=== PATIENT | male | born 1955 | race Caucasian/White ===

== ENCOUNTER 2018-07-24 13:24 | Emergency (ER) | payer OTHER ==
--- NOTE | 2018-07-25 08:31 | NUR ---
Attempted to call patient to return to ER. There is not a phone number listed for this patient.
== END 2018-07-24 14:46 | disposition left against medical advice (07) ==
LOC: ER 13:25
DX: R42 Dizziness and giddiness (principal); Z53.21 Procedure and treatment not carried out due to patient leaving prior to being seen by health care provider
CPT/HCPCS: 93005

== ENCOUNTER 2018-10-30 09:22 | Outpatient (CLI) | payer MEDICARE ==
[2018-10-30] VITALS (18 sets, daily range): BP systolic 108–145; BP diastolic 68–86
== END 2018-10-30 23:59 | disposition home or self-care (01) ==
LOC: CARD DIAG 09:22
PROVIDERS: ATTEND Physician Assistant
DX: R55 Syncope and collapse (principal); R42 Dizziness and giddiness; F17.200 Nicotine dependence, unspecified, uncomplicated
CPT/HCPCS: 93660

== ENCOUNTER 2022-11-21 11:56 | Emergency (ER) | payer MEDICARE ==
[~2022-11-21] VITALS: Ht 180.3 cm; Wt 68.0 kg
[2022-11-21 12:24] LABS: BASOPHILS % (AUTO) 0.1 % (0-1); EOSINOPHILS % (AUTO) 0.2 % (0-6); HEMATOCRIT 48.5 % (42.0-52.0); HEMOGLOBIN 16.2 g/dl (14.0-17.9); LYMPHOCYTES # (AUTO) 1.5 X10'3 (1.1-4.8); LYMPHOCYTES % (AUTO) 9.4 % (21-51); MEAN CORPUSCULAR HGB CONC 33.3 g/dL (33.0-36.5); MONOCYTES # (AUTO) 0.8 X10'3 (0-0.9); MONOCYTES % (AUTO) 5.2 % (2-12); NEUTROPHILS # (AUTO) 13.2 X10'3 (1.8-7.7); NEUTROPHILS % (AUTO) 85.1 % (42-75); PLATELET COUNT 235 X10'3 (140-440); RED BLOOD COUNT 5.39 X10'6 (4.70-6.10); RED CELL DISTRIBUTION WIDTH 14.2 % (11.5-14.5); WHITE BLOOD COUNT 15.5 X10'3 (4.5-11.0)
[2022-11-21 12:33] LABS: ALANINE AMINOTRANSFERASE 18 U/L (12-78); ALBUMIN/GLOBULIN RATIO 1.3 (1.1-1.5); ALKALINE PHOSPHATASE 108 IU/L (46-116); ANION GAP 11 (8-16); ASPARTATE AMINO TRANSFERASE 9 U/L (10-37); BILIRUBIN,TOTAL 0.6 MG/DL (0.1-1.0); BLOOD UREA NITROGEN 27 MG/DL (7-18); CALCIUM 9.6 MG/DL (8.5-10.1); CHLORIDE 103 MMOL/L (99-107); CREATININE 1.35 MG/DL (0.60-1.10); GLUCOSE 171 MG/DL (70-104); POTASSIUM 3.9 MMOL/L (3.5-5.1); SODIUM 141 MMOL/L (135-145); TOTAL CARBON DIOXIDE 26.6 MMOL/L (24-32); eGFR 52 ML/MIN
[2022-11-21] MEDS ORDERED: normal saline 1000ML IV soln IVB ONE (14:10)
[2022-11-21] MEDS ORDERED: HYDROcodone/acetaminophen 5mg/325mg tablet PO ONE (14:10)
[2022-11-21] MEDS ORDERED: iohexol 350MG/ML 100ml bottle IV ONE (14:17)
[2022-11-21] MEDS ORDERED: ondansetron/PF 4mg/2ml inj IV ONE (15:45)
[2022-11-21] MEDS ORDERED: methylPREDNISolone sod succ 125mg/2ml vial IV ONE (17:25)
[2022-11-21 17:56] VITALS: BP 150/82
== END 2022-11-21 18:00 | disposition home or self-care (01) ==
LOC: ER 11:57
DX: R07.9 Chest pain, unspecified (principal); Z95.0 Presence of cardiac pacemaker; I11.0 Hypertensive heart disease with heart failure; J44.9 Chronic obstructive pulmonary disease, unspecified; Z90.49 Acquired absence of other specified parts of digestive tract; Z88.6 Allergy status to analgesic agent; Z79.899 Other long term (current) drug therapy
CPT/HCPCS: 36415; 71045; 71275; 74174; 80053; 83880; 84484; 85025; 93005; 96361; 96374; 96375; 99285; J2405; J2930; J3490; J7030; Q9967

== ENCOUNTER 2024-12-27 09:15 | Emergency (ER) | payer MEDICARE ==
[~2024-12-27] VITALS: Ht 180.3 cm; Wt 66.2 kg
[~2024-12-27 09:15] MED LIST: ACET-1 PO; ATOR10TA PO; CLOP-32 PO; CYCL-920 PO; LOP25T PO; NITR0.4T48 SL; PANT40TA54 PO
--- NOTE | 2024-12-27 09:33 | ELECTROCARDIOGRAPH REPORT ---
[facility] Test Date: 2024-12-27 Test Time: 09:31:10 Pat Name: LANDON NICOLE Department: [facility] Patient ID: 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 Reading MD: Dr. Elias Rice Measurements Intervals Kevin Rate: 85 P: 95 AK: 180 QRS: 175 QRSD: 104 T: 75 QT: 394 QTc: 469 Interpretive Statements Sinus rhythm Probable right ventricular hypertrophy Inferior infarct, acute (RCA) Probable RV involvement, suggest recording right precordial leads Baseline wander in lead(s) II,III,aVR,aVL,aVF,V3,V5,V6 Electronically Signed On 12-27-2024 10:27:[address] Elias Rice Please click the below link to view image of tracing.
[2024-12-27 09:52] LABS: MEAN PLATELET VOLUME 7.0 FL (7.4-10.4); RED CELL DISTRIBUTION WIDTH 14.3 % (11.5-14.5)
[2024-12-27 09:58] LABS: CREATININE 1.08 MG/DL (0.60-1.10); TOTAL CARBON DIOXIDE 27.4 MMOL/L (24-32); eCRCL 59 ML/MIN; eGFR 67 ML/MIN
[2024-12-27 10:31] VITALS: TEMP 97.7
[2024-12-27 11:22] LABS: LEUKOCYTE ESTERASE ,URINE MODERATE (Neg); NITRITES, URINE NEGATIVE (Neg); OCCULT BLOOD,URINE LARGE (Neg)
[2024-12-27 11:28] LABS: UA COLLECTION TYPE CLN CATCH MIDSTREAM
[2024-12-27 11:29] LABS: MUCUS STRANDS NONE SEEN /LPF (Neg); SQUAMOUS EPITHELIAL CELL,UR FEW /LPF (FEW)
--- NOTE | 2024-12-27 11:35 | Physician Documentation ---
History of Present Illness ~ General Chief Complaint: Blood in Urine Stated Complaint: EYE PRESSURE, BLOOD IN URINE Time Seen by MD: 11:07 OK to notify your PCP?: Yes Primary Medical Doctor: MARTHA FERNANDES [facility] Source: patient, RN/MD, RN notes reviewed, old records Mode of Arrival: POV, Wheelchair Exam Limitations: no limitations History of Present Illness Initial Comments This pleasant patient just had open heart surgery and seems to be healing excessively well. He was taken to the operating room on 12/04/2024 and had a two-vessel CABG. He has a history of paroxysmal AFib coronary artery disease hypertension status post CABG x2 vessel and was discharged home. The patient is on Plavix. No other anticoagulant was listed. Patient has been doing relatively well he has has had some pain to the back of the right side of his head temporal. He denies any photophobia no meningeal signs able to move his head without difficulty. He also is having some right eye pain that is started today where it is slightly red in the medial aspect it seems tender but also of concern started having some hematuria today as well. Patient denies any fevers or chills no dysuria frequency no chest pain no shortness of breath. He is here for evaluation and care. Medication Reconciliation Allergies: Coded Allergies: NSAIDS (Non-Steroidal Anti-Inflamma (Verified Allergy, Unknown, 12/27/24) aspirin (Verified Adverse Reaction, Severe, 12/27/24) Vomiting Scheduled Atorvastatin Calcium (Lipitor), 10 MG PO HS Ciprofloxacin HCl (Cipro), 1 TAB PO DAILY Clopidogrel Bisulfate (Plavix), 1 TAB PO DAILY, (Reported) Metoprolol Tartrate* (Lopressor tablet*), 25 MG PO Q12H Pantoprazole Sodium (Pantoprazole Sodium), 40 MG PO DAILY Scheduled PRN Acetaminophen with Codeine (Acetaminophen-Cod #3 Tablet), 1 TAB PO Q6H PRN for pain Cyclobenzaprine HCl (Cyclobenzaprine HCl), 1 TAB PO DAILY PRN for pain, (Reported) Nitroglycerin (Nitroglycerin), 0.4 MG SL Q5MIN PRN for Chest pain Q5min PRNx3- call MD, (Reported) Past Medical History Past Medical History: Arrhythmia, Coronary Artery Disease, Syncope, COPD Past Surgical History: angioplasty, pacemaker Alcohol Use: Rarely Drug Use: none Lives with: Spouse Lives In: Home Review of Systems All Other Systems at this time: Reviewed and Negative Physical Exam Physical Exam Vital Signs: RN Vital Signs have been reviewed: Yes, Temperature: 97.7, Source: Temporal, Heart Rate: 86, Respiratory Rate: 12, BP: 126/81, Pulse Oximetry: 100, Weight: 66.200 Oxygen Flow Rate: 0 Physical Exam General: The patient is well developed, well nourished, nontoxic appearing and is in mild acute distress. Skin: [place], warm and dry with no rashes. HEENT: Head was normocephalic and atraumatic. Eyes - pupils equal, round, reactive to light and accommodation. Left eye there is a medial globe of the right eye there is a Ric[place] of blue. Some slight congestion of and dilation of ocular external scleral vessels on the medial aspect. Optic discs well visualized no blood or abnormalities. Globes are soft to palpation. Extraocular movements were intact. Conjunctivae were nonicteric. The mouth and oropharynx were clear with moist mucous membranes. There were no pharyngeal exudates or erythema. Neck: Supple and nontender. There was no jugular venous distention, lymphadenopathy, thyromegaly or masses. No midline or paraspinal tenderness no meningeal symptoms. Full range of motion Chest: Clear to auscultation bilaterally without wheezes, rales or rhonchi. No accessory muscle use. No dullness to percussion. Heart: Rate regular and rhythmic. S1, S2. No murmurs. Palpation of the chest wall was normal. No rubs or thrills. Abdomen: Soft, nontender and nondistended. Positive bowel sounds. No guarding or rebound. No hepatosplenomegaly or palpable masses. Extremities: No cyanosis, clubbing or edema. The patient moves all extremities. Pulses were equal and symmetric. Neurologic: Motor sensory grossly intact Psychologic: The patient was oriented to person, place and time. The patient demonstrated appropriate judgement and insight. Progress Results/Orders Reviewed/noted all lab results: Yes Results/Orders Orders - VOLODYMYR GUZMAN MD Straight Cath For Urine Sample (12/27/24 09:23) Electrocardiogram (12/27/24 09:25) Cult Urine + [place] Ct (12/27/24 11:29) Ct Orbits (12/27/24 11:50) Ct Head (12/27/24 ) General Nursing Order (12/27/24 ) Completed Orders - VOLODYMYR GUZMAN MD Cbc/Diff (12/27/24 09:23) BMP (12/27/24 09:23) Electrocardiogram (12/27/24 09:25) Ua W/Microscopic, Cult If Ind (12/27/24 11:10) Ct Orbits (12/27/24 11:50) Ct Head (12/27/24 ) Proparacaine Ophth Solution (Alcaine Oph (12/27/24 11:55) Medications Received in ER Medications (Trade) Dose Ordered Sig/Mike Route PRN Reason Start Time Stop Time Status Last Admin Dose Admin (Alcaine ophth solution) 2 drop ONCE ONCE RIGHTEYE 12/27/24 11:55 12/27/24 11:56 DC 12/27/24 12:27 2 DROP Vital Signs 12/27/24 12/27/24 12/27/24 09:19 09:31 10:31 Temp 97.7 97.7 Pulse 93 86 Resp 20 18 12 B/P (MAP) 120/77 126/81 (96) Pulse Ox 98 100 O2 Flow Rate 0 0 Laboratory Tests Test 12/27/24 09:41 12/27/24 11:10 White Blood Count 16.0 H Red Blood Count 4.38 L Hemoglobin 13.3 L Hematocrit 38.8 L Mean Corpuscular Volume 88.5 Mean Corpuscular Hemoglobin 30.2 Mean Corpuscular Hemoglobin Concent 34.2 Red Cell Distribution Width 14.3 Platelet Count 352 Mean Platelet Volume 7.0 L Neutrophils (%) (Auto) 80.7 H Lymphocytes (%) (Auto) 11.3 L Monocytes (%) (Auto) 7.2 Eosinophils (%) (Auto) 0.4 Basophils (%) (Auto) 0.4 Neutrophils # (Auto) 12.9 H Lymphocytes # (Auto) 1.8 Monocytes # (Auto) 1.2 H Eosinophils # (Auto) 0.1 Basophils # (Auto) 0.1 CBC Comment Sodium Level 136 Potassium Level 4.3 Chloride Level 100 Carbon Dioxide Level 27.4 Anion Gap 9 Blood Urea Nitrogen 19 H Creatinine 1.08 Estimated GFR/1.73 m2 67 BUN/Creatinine Ratio 17.6 Glucose Level 139 H Calcium Level 9.3 Albumin 3.7 Chemistry Comments Urine Specimen Description Cln catch midstream Urine Color Yellow Urine Clarity Slightly cloudy Urine pH 6.5 Urine Specific [place] 1.010 Urine Protein Trace Urine Glucose (UA) Negative Urine Ketones Negative Urine Occult Blood Large H Urine Nitrite Negative Urine Bilirubin Negative Urine Urobilinogen 0.2 Urine Leukocyte Esterase Moderate H Urine RBC 0-2 Urine WBC 50-100 H Urine Squamous Epithelial Cells Few Urine Bacteria 1+ Urine Mucus None seen Urine Culture Indicated Indicated Volume Urine Centrifuged 10 ml Urine Comment Microbiology Date/Time Source Procedure Growth Status 12/27/24 11:29 Urine Clean Catch Midstream Urine Culture - Preliminary Culture received. Resulted Re-Evaluation Re-Evaluation : Re-Evaluation: Improved Progress Patient was given ice who as I. CT scan of the head and I did not show any acute bleeds. Hematuria showed more of WBCs more consistent with a urinary tract infection. Laboratory work shows a WBC of 16.0 and 80% neutrophils consistent with possible infectious etiology. There was some chronic anemia with a hemoglobin of 13 and 38 which is much greater than his baseline which is reassuring. Chemistries also within normal limits. Urinalysis however shows occult blood large but there are moderate leukocyte esterase 0-2 RBCs and 50-100 WBCs with 1+ bacteria few squamous epithelial cells consistent with a UTI. Patient then received fosfomycin and prescribed Cipro for a few days. Patient has follow up with both his riveter on Saturday and Cardiothoracic surgeon on Saturday. I spoke to his Cardiothoracic surgeon who agreed holding Plavix until symptoms improve would be prudent. As far as his eyes they were palpated they did not feel like there is any glaucoma or abnormal ocular pressures but was unable to use a Elder-Pen on the patient. Patient did receive some Alcaine eyedrops in his headache and pain immediately resolved but returned when the sensation back to his eye returned. Ice seemed to be helping. Continuous telemetry monitor interpretation shows normal sinus rhythm heart rate 90s, no ectopy, normal, my interpretation. Pulse oximetry monitor interpretation shows normal oxygenation 99% room air, normal, my interpretation. 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 Volodymyr Guzman Measurements Intervals [place] Rate: 85 P: 95 NV: 180 QRS: 175 QRSD: 104 T: 75 QT: 394 QTc: 469 Interpretive Statements Sinus rhythm Probable right ventricular hypertrophy Inferior infarct, acute (RCA) Probable RV involvement, suggest recording right precordial leads Baseline wander in lead(s) II,III,aVR,aVL,aVF,V3,V5,V6 Electronically Signed On 12-27-2024 10:27:[address] Volodymyr Guzman Please click the below link to view image of tracing. CT #1: Interpreted By: both CT: head With Contrast?: No Impression EXAM: CT CT HEAD INDICATION: eye right medial hematoma TECHNIQUE: CT of the head without intravenous contrast. Radiation Dose : 1. Head: CT Dose: CTDI volume is 52 mGy. Dose-length product is 957 mGy*cm The dose indicators for CT are the volume Computed Tomography (CT) Dose Index (CTDIvol) and the Dose Length Product (DLP), and are measured in units of mGy and mGy-cm, respectively. These indicators are not patient dose, but values generated from the CT scanner acquisition factors. The report includes radiation exposure data for exposures received during this examination. COMPARISON: None FINDINGS: There is no evidence of acute intracranial hemorrhage, extra-axial collection, mass effect, midline shift, herniation or hydrocephalus. The ventricles, sulci and cisterns are age appropriate. The winkler-white differentiation is intact. Patchy periventricular and subcortical white matter hypoattenuation is nonspecific but may be related to small vessel ischemic disease. The visualized paranasal sinuses and mastoid air cells are clear. The surrounding soft tissues and osseous structures are unremarkable. IMPRESSION: 1. No acute intracranial abnormality. Radiation optimization: All CT scans at this facility use at least one of these dose optimization techniques: automated exposure control mA and/or kV adjustment per patient size (includes targeted exams where dose is matched to clinical indication) or iterative reconstruction. #2: Interpreted By: radiologist With Contrast?: Yes Impression CT CT ORBITS Indication: eye right medial hematoma EXAM DATE: 12/27/2024 11:58 AM COMPARISON: CT CT HEAD on DOS: 12/27/24 TECHNIQUE: CT of the head without intravenous contrast. RADIATION DOSE: CTDIvol: 49 mGy, DLP: 546 mGy*cm FINDINGS: The paranasal sinuses and mastoids are well pneumatized. No orbital fracture. No retrobulbar hematoma. The extraocular muscles are unremarkable. No orbital mass seen. Mild right facial region contusion. 8 mm calcified lesion along the left orbital roof. IMPRESSION: No orbital wall fracture. No retrobulbar hematoma. Mild right facial region contusion. 8 mm calcified lesion along the orbital roof could represent osteoma, meningioma. MRI brain with and without contrast can be obtained for further characterization. Medical Decision Making Additional info obtained from: old records Departure Disposition: HOME / SELF CARE / HOMELESS Impression: Primary Impression: UTI (urinary tract infection) Qualified Codes: N30.01 - Acute cystitis with hematuria Additional Impressions: Scleral hematoma Cephalgia Qualified Codes: G44.209 - Tension-type headache, unspecified, not intractable Condition: Stable Referrals: NO PRIMARY CARE PROVIDER (PCP) Prescriptions Ciprofloxacin HCl (Cipro) 250 Mg Tablet 1 TAB PO DAILY for 5 Days, #5 TAB 0 Refills Prov: VOLODYMYR GUZMAN MD 12/27/24 Education Educated: Patient Educated regarding: diagnosis, need for follow up, other Signature Scribe Signature: . Attestation: The note accurately reflects work and decisions made by me.Volodymyr Guzman MD 12/27/24 11:56 VOLODYMYR GUZMAN MD Dec 27, 2024 11:35
[2024-12-27] MEDS: proparacaine 0.5% ophthalmic drops 15ml RIGHTEYE ONE (12:27)
--- NOTE | 2024-12-27 12:34 | RADIOLOGY REPORT ---
EXAM: CT CT HEAD INDICATION: eye right medial hematoma TECHNIQUE: CT of the head without intravenous contrast. Radiation Dose : 1. Head: CT Dose: CTDI volume is 52 mGy. Dose-length product is 957 mGy*cm The dose indicators for CT are the volume Computed Tomography (CT) Dose Index (CTDIvol) and the Dose Length Product (DLP), and are measured in units of mGy and mGy-cm, respectively. These indicators are not patient dose, but values generated from the CT scanner acquisition factors. The report includes radiation exposure data for exposures received during this examination. COMPARISON: None FINDINGS: There is no evidence of acute intracranial hemorrhage, extra-axial collection, mass effect, midline s hift, herniation or hydrocephalus. The ventricles, sulci and cisterns are age appropriate. The winkler-white differentiation is intact. Patchy periventricular and subcortical white matter hypoattenuation is nonspecific but may be related to small vessel ischemic disease. The visualized paranasal sinuses and mastoid air cells are clear. The surrounding soft tissues and osseous structures are unremarkable. IMPRESSION: 1. No acute intracranial abnormality. Radiation optimization: All CT scans at this facility use at least one of these dose optimization raf hniques: automated exposure control mA and/or kV adjustment per patient size (includes targeted exam s where dose is matched to clinical indication) or iterative reconstruction.
--- NOTE | 2024-12-27 13:00 | RADIOLOGY REPORT ---
CT CT ORBITS Indication: eye right medial hematoma EXAM DATE: 12/27/2024 11:58 AM COMPARISON: CT CT HEAD on DOS: 12/27/24 TECHNIQUE: CT of the head without intravenous contrast. RADIATION DOSE: CTDIvol: 49 mGy, DLP: 546 mGy*cm FINDINGS: The paranasal sinuses and mastoids are well pneumatized. No orbital fracture. No retrobulbar hematoma. The extraocular muscles are unremarkable. No orbital mass seen. Mild right facial region contusion. 8 mm calcified lesion along the left orbital roof. IMPRESSION: No orbital wall fracture. No retrobulbar hematoma. Mild right facial region contusion. 8 mm calcified lesion along the orbital roof could represent osteoma, meningioma. MRI brain with and without contrast can be obtained for further characterization.
[2024-12-27] MEDS ORDERED: CIPR-260 PO (13:37)
[2024-12-27 14:09] VITALS: BP 121/82; PULSE 85; RESP 17; O2SAT 99
[2024-12-27] MEDS: FOSFOMYCIN TROMETHAMINE 3 GM PACKET PO ONE (14:21)
== END 2024-12-27 14:27 | disposition home or self-care (01) ==
LOC: ER 09:16
DX: N39.0 Urinary tract infection, site not specified (principal); S00.93XA Contusion of unspecified part of head, initial encounter; R51.9 Headache, unspecified; H57.11 Ocular pain, right eye; I10 Essential (primary) hypertension; I25.10 Atherosclerotic heart disease of native coronary artery without angina pectoris; J44.9 Chronic obstructive pulmonary disease, unspecified; Z88.6 Allergy status to analgesic agent; Z95.0 Presence of cardiac pacemaker
CPT/HCPCS: 36415; 70450; 70480; 80048; 81001; 85025; 87077; 87088; 87186; 93005; 99284

== ENCOUNTER 2024-12-30 14:08 | Emergency (ER) | payer MEDICARE ==
[~2024-12-30] VITALS: Ht 180.3 cm; Wt 63.0 kg
[~2024-12-30 14:08] MED LIST changes: +CIPR-260 PO
[2024-12-30 14:14] VITALS: PULSE 77; TEMP 97.8
--- NOTE | 2024-12-30 15:36 | Physician Documentation ---
History of Present Illness General Chief Complaint: Eye Pain Stated Complaint: R EYE PAIN Time Seen by MD: 14:31 Primary Medical Doctor: MARTHA FERNANDES [facility] History of Present Illness Initial Comments The patient is a 69-year-old male with several day history of right eye pain that has radiated into his head, in general. He complains of foggy vision out of his right eye. Medication Reconciliation Allergies: Coded Allergies: NSAIDS (Non-Steroidal Anti-Inflamma (Verified Allergy, Unknown, 12/27/24) aspirin (Verified Adverse Reaction, Severe, 12/27/24) Vomiting Scheduled Atorvastatin Calcium (Lipitor), 10 MG PO HS Ciprofloxacin HCl (Cipro), 1 TAB PO DAILY Clopidogrel Bisulfate (Plavix), 1 TAB PO DAILY, (Reported) Metoprolol Tartrate* (Lopressor tablet*), 25 MG PO Q12H Pantoprazole Sodium (Pantoprazole Sodium), 40 MG PO DAILY Scheduled PRN Acetaminophen with Codeine (Acetaminophen-Cod #3 Tablet), 1 TAB PO Q6H PRN for pain Cyclobenzaprine HCl (Cyclobenzaprine HCl), 1 TAB PO DAILY PRN for pain, (Reported) Nitroglycerin (Nitroglycerin), 0.4 MG SL Q5MIN PRN for Chest pain Q5min PRNx3- call MD, (Reported) Past Medical History Past Medical History: Arrhythmia, Coronary Artery Disease, Syncope, COPD Past Surgical History: angioplasty, pacemaker Alcohol Use: Rarely Drug Use: none Lives with: Spouse Lives In: Home Review of Systems ROS 10 system review was negative except as noted in HPI. Physical Exam Physical Exam Vital Signs: Temperature: 97.8, Source: Oral, Heart Rate: 77, Respiratory Rate: 16, BP: 126/85, Pulse Oximetry: 99, Weight: 63.000 Oxygen Flow Rate: 0 Physical Exam Tonometry revealed a pressure of 37 and 41 mm in the right eye. Left eye pressures 6 and 10. Progress Results/Orders Results/Orders Orders - TINA MELARA MD Acetazolamide Tablet (Diamox Tablet) (12/30/24 15:40) Vital Signs 12/30/24 14:14 Temp 97.8 Pulse 77 Resp 16 B/P (MAP) 126/85 Pulse Ox 99 O2 Flow Rate 0 Medical Decision Making Findings I was able to get the patient into [facility] urgently (20 minutes) Departure Disposition: 01 HOME / SELF CARE / HOMELESS Impression: Primary Impression: Glaucoma Additional Instructions: Please go directly to see Dr. Zuñiga at [address] [facility] in [place]. He is waiting for you. Referrals: NO PRIMARY CARE PROVIDER (PCP) Signature Scribe Signature: . Attestation: . TINA MELARA MD Dec 30, 2024 15:36
[2024-12-30] MEDS ORDERED: timolol 0.5% ophthalmic solution 5ml bottle RIGHTEYE ONE (15:45)
[2024-12-30] MEDS ORDERED: brimonidine 0.2% 5 ML ophthalmic drops RIGHTEYE ONE (15:45)
[2024-12-30 16:07] VITALS: BP 131/84; RESP 16; O2SAT 98
[2024-12-31] MEDS ORDERED: BRIM10DR2 RIGHTEYE (14:51)
== END 2024-12-30 16:10 | disposition home or self-care (01) ==
LOC: ER 14:09
DX: H40.9 Unspecified glaucoma (principal); I25.10 Atherosclerotic heart disease of native coronary artery without angina pectoris; J44.9 Chronic obstructive pulmonary disease, unspecified; Z88.6 Allergy status to analgesic agent; Z95.0 Presence of cardiac pacemaker
CPT/HCPCS: 99283

== ENCOUNTER 2024-12-30 17:21 | Inpatient (IN) | payer MEDICARE ==
[~2024-12-30] VITALS: Ht 180.3 cm; Wt 65.5 kg
--- NOTE | 2024-12-30 17:49 | Physician Documentation ---
History of Present Illness General Chief Complaint: Eye Pain Stated Complaint: REEVAL Time Seen by MD: 17:33 Primary Medical Doctor: MARTHA FERNANDES [facility] History of Present Illness Initial Comments The patient is a 69-year-old male who I saw earlier today with right-sided eye and head pain. I obtained globe pressures in the right eye was substantially elevated. One of our local ophthalmologists, Dr. Zuñiga, kindly agreed to see the patient and confirmed the elevated pressure (38 mm in the right eye and 8 mm in the left eye, reportedly). However, he was concerned that there may be concomitant giant cell arteritis and sent the patient back here for C-reactive protein and ESR. History as above. Family is also concerned as he has been losing weight ever senses open heart surgery a few weeks ago and they feel like he has a facial droop Medication Reconciliation Allergies: Coded Allergies: NSAIDS (Non-Steroidal Anti-Inflamma (Verified Allergy, Unknown, 12/27/24) aspirin (Verified Adverse Reaction, Severe, 12/27/24) Vomiting Scheduled Atorvastatin Calcium (Lipitor), 10 MG PO HS Brimonidine Tartrate/Timolol (Combigan Eye Drops), 1 DROP RIGHTEYE Q12H, (Reported) Clopidogrel Bisulfate (Plavix), 1 TAB PO DAILY, (Reported) Metoprolol Tartrate* (Lopressor tablet*), 25 MG PO Q12H Pantoprazole Sodium (Pantoprazole Sodium), 40 MG PO DAILY Scheduled PRN Acetaminophen with Codeine (Acetaminophen-Cod #3 Tablet), 1 TAB PO Q6H PRN for pain Cyclobenzaprine HCl (Cyclobenzaprine HCl), 1 TAB PO DAILY PRN for pain, (Reported) Nitroglycerin (Nitroglycerin), 0.4 MG SL Q5MIN PRN for Chest pain Q5min PRNx3- call MD, (Reported) Discontinued Medications Ciprofloxacin HCl (Cipro), 1 TAB PO DAILY Past Medical History Past Medical History: Arrhythmia, Coronary Artery Disease, Syncope, COPD Past Surgical History: angioplasty, pacemaker Alcohol Use: Rarely Drug Use: none Lives with: Spouse Lives In: Home Review of Systems ROS A 10 system review is negative except as noted in the HPI Physical Exam Physical Exam Vital Signs: Temperature: 98.6, Heart Rate: 90, Respiratory Rate: 14, BP: 156/ 100, Pulse Oximetry: 100, Weight: 65.450 Oxygen Flow Rate: 0 Physical Exam General: Patient is awake, alert, oriented x4 in no acute distress . Slow to respond at times Head: Normocephalic and atraumatic. No tenderness to palpation to temporal arteries Eyes: Conjunctival normal. EOMI. PERRL. ENT: Mucous membranes moist. Neck: Supple, trachea is midline. Chest: Clear to auscultation bilaterally without rales, rhonchi, or wheezes. There is no accessory muscle use or retractions. Cardiac: RRR without murmurs, gallops, or rubs. Abd: Soft, nondistended, nontender, with normoactive bowel sounds. No guarding, rebound, or rigidity. Extremities: Normal strength. Normal range of motion. No deformities or edema. Back: No midline spinal or CVA tenderness. Skin: Warm and dry with no significant rash appreciated. Neuro: Cranial nerves II-XII grossly intact. No focal neuro deficits. Progress Results/Orders Results/Orders Completed Orders - TINA MELARA MD C-Reactive Protein (12/30/24 17:33) ESR (12/30/24 17:33) Laboratory Tests Test 12/30/24 17:53 12/30/24 20:11 12/30/24 20:13 Erythrocyte Sedimentation Rate 29 H C-Reactive Protein 2.26 H Urine Specimen Description Cln catch midstream Urine Color Yellow Urine Clarity Slightly cloudy Urine pH 6.0 Urine Specific [place] >=1.030 Urine Protein Trace Urine Glucose (UA) Negative Urine Ketones 15 H Urine Occult Blood Small Urine Nitrite Negative Urine Bilirubin Small Urine Urobilinogen 1.0 Urine Leukocyte Esterase Negative Urine RBC 3-10 Urine WBC 5-10 H Urine WBC Clumps Moderate Urine Squamous Epithelial Cells Few Urine Bacteria 1+ Urine Mucus Moderate Urine Culture Indicated Indicated Volume Urine Centrifuged 10 ml Urine Comment White Blood Count 7.8 Red Blood Count 4.81 Hemoglobin 14.6 Hematocrit 42.9 Mean Corpuscular Volume 89.3 Mean Corpuscular Hemoglobin 30.3 Mean Corpuscular Hemoglobin Concent 34.0 Red Cell Distribution Width 14.3 Platelet Count 330 Mean Platelet Volume 7.6 Neutrophils (%) (Auto) 71.9 Lymphocytes (%) (Auto) 18.0 L Monocytes (%) (Auto) 8.7 Eosinophils (%) (Auto) 1.1 Basophils (%) (Auto) 0.3 Neutrophils # (Auto) 5.6 Lymphocytes # (Auto) 1.4 Monocytes # (Auto) 0.7 Eosinophils # (Auto) 0.1 Basophils # (Auto) 0.0 CBC Comment Sodium Level 135 Potassium Level 4.6 Chloride Level 99 Carbon Dioxide Level 28.1 Anion Gap 8 Blood Urea Nitrogen 29 H Creatinine 1.16 H Estimated GFR/1.73 m2 62 BUN/Creatinine Ratio 25.0 H Glucose Level 138 H Calcium Level 9.7 Ammonia < 10 L Pro-B-Type Natriuretic Peptide 186 H Albumin 3.9 Chemistry Comments Microbiology Date/Time Source Procedure Growth Status 12/30/24 20:45 Urine Clean Catch Midstream Urine Culture - Final NO GROWTH AFTER 2 DAYS Complete Medical Decision Making Findings I have ordered CRP and ESR as per requested by the violent crimes detective, Dr. Zuñiga. Patient presented to the emergency room for evaluation of possible temporal arteritis. CRP and ESR do not suggest temporal arteritis and there was no tenderness to palpation to his temporal arteries however after discussing with family they are concerned because he is not quite acting like himself, losing weight and feel he is suffering from a facial droop. Last time known normal many days ago. Tele neurology consulted recommends admission for further investigation possible stroke. Departure Disposition: ADMITTED INPATIENT Admitted to Inpatient Unit: yes, to hospitalist Impression: Primary Impression: Possible stroke Additional Impression: Glaucoma Condition: Stable Referrals: NO PRIMARY CARE PROVIDER (PCP) Signature Scribe Signature: No scribe Attestation: The note accurately reflects work and decisions made by me.Ventura Aggarwal MD 12/30/24 21:57 TINA MELARA MD Dec 30, 2024 17:49 VENTURA AGGARWAL MD Dec 30, 2024 19:50
[2024-12-30 20:26] LABS: MEAN PLATELET VOLUME 7.6 FL (7.4-10.4); RED CELL DISTRIBUTION WIDTH 14.3 % (11.5-14.5)
[2024-12-30 20:28] LABS: CREATININE 1.16 MG/DL (0.60-1.10); TOTAL CARBON DIOXIDE 28.1 MMOL/L (24-32); eCRCL 54 ML/MIN; eGFR 62 ML/MIN
[2024-12-30 20:29] LABS: LEUKOCYTE ESTERASE ,URINE NEGATIVE (Neg); NITRITES, URINE NEGATIVE (Neg); OCCULT BLOOD,URINE SMALL (Neg)
--- NOTE | 2024-12-30 20:34 | RADIOLOGY REPORT ---
CLINICAL HISTORY: Mental status change. TECHNIQUE: Single view of the chest was obtained. COMPARISON: DI CHEST,SINGLE VIEW on DOS: 12/07/24, DI CHEST,SINGLE VIEW on DOS: 12/06/24, DI CHEST,SING LE VIEW on DOS: 12/05/24, DI CHEST,SINGLE VIEW on DOS: 12/04/24, DI CHEST,TWO VIEWS on DOS: 12/01/24 FINDINGS: There is a dual lead left chest wall pacingpacing device, midline denomy wires, and a left atrial triston sure device. The heart size and pulmonary vasculature are normal. The lungs are clear. IMPRESSION: NO ACUTE CARDIOPULMONARY PROCESS.
[2024-12-30 20:36] LABS: UA COLLECTION TYPE CLN CATCH MIDSTREAM
[2024-12-30 20:45] LABS: MUCUS STRANDS MODERATE /LPF (Neg); SQUAMOUS EPITHELIAL CELL,UR FEW /LPF (FEW); WBC CLUMPS,URINE MODERATE /HPF (NEGATIVE)
--- NOTE | 2024-12-30 21:04 | [facility] CONSULT REPORT ---
[facility] Procedure Note [facility] Procedure Note Consult [facility] Note # Demographics Consult Type: General Neurology Patient Location: Emergency Room First Name: LANDON Last Name: COREY Date of : 1955 Age: 69 Gender: Male Facility: [facility] Time of Initial Page (): 12/30/2024 19:52 First Contact with Site (): 12/30/2024 19:52 # HPI History: Here from ophthalmology for concern for giant cell arteritis. Was diagnosed with glaucoma in the right eye with elevated pressures (38 in right eye and 8 in left ) in the last week. started on new eye drops for this. Pain is improving with eye drops. Hx cabg three weeks ago. Family believes he has confusion and right facial droop in the last few days. His home plavix is being held for concern for ruptured blood vessels behind the eye. # Scores Level of Consciousness 1a: [0] = Alert; keenly responsive LOC Questions 1b: [0] = Answers both questions correctly LOC Commands 1c: [0] = Performs both tasks correctly Best Gaze 2: [0] = Normal Visual 3: [0] = No visual loss Facial Palsy 4: [0] = Normal symmetrical movements Motor Arm Left 5a: [0] = No drift Motor Arm Right 5b: [0] = No drift Motor Leg Left 6a: [0] = No drift Motor Leg Right 6b: [0] = No drift Limb Ataxia 7: [0] = Absent Sensory 8: [0] = Normal Best Language 9: [0] = No aphasia Dysarthria 10: [0] = Normal Extinction and Inattention 11: [0] = No abnormality NIHSS Total: 0 # Data Other Labs: esr 29 (normal<20) crp 2.2 # Assessment Impression: - Other Given the confusion and coenrn for new facial asymmetry an MRI should be done to r/o recent stroke given his vascular risk factors. WHile glaucoma could be the cause of right eye pain the family says the pain was excrutiating over the last week. His inflammatory markers are elevated mildly but also had recent CABG and query if this could have contributed to the elevation. For now will focus on CTA h/n and MRI brain wwo. Pending these studies consider empiric steroids and temporal artery biopsy. If any progressive vision chnages/worsening then should empirically start steroids and contact rheumatology and ophthalmology # Plan Thrombolytic/Intervention: Possible IA candidate Thrombolytic Exclusion: > 4.5 hours Possible IA Candidate: - no signs and symptoms of LVO - CTA pending Target Blood Pressure: SBP < 180 Imaging: (urgency: STAT): - CT Angiogram Head and CT Angiogram Neck AND call back with results if abnormal Imaging: (urgency: routine): - MRI Brain with AND without contrast Medication: asa 325 today Other: - If patient has any neurological deterioration please call me back immediately - I have discussed my recommendations with the referring provider - would not pursue stroke work-up if MRI is negative # Logistics Attestation of consult completion: The patient is located at: [facility]. Facility staff participated in the visit. I performed this telemedicine visit from my offsite office utilizing interactive 2 way audio and visual telecommunication technology at the request of the onsite emergency room provider. Total time spent in telemedicine encounter: I spent 21 minutes reviewing clinical data and/or imaging, obtaining history, examining the patient, communicating with the onsite care team, and in preparation of this report. # Demographics First Name: LANDON Last Name: COREY Facility: [facility] Electronically signed at 12/30/2024 21:03 ([place] Time) by Alfredo Marie MD Neuro Consult Order placed for: Yes NARENDRA MARIE MD Dec 30, 2024 21:04
[2024-12-30] MEDS ORDERED: magnesium sulf-water 2g/50mL 50 ML IV PRN (22:00)
[2024-12-30] MEDS ORDERED: potassium Cl 20 mEq SR tablet PO PRN ×2 (22:00)
[2024-12-30] MEDS ORDERED: magnesium Cl slow-release 64mg tablet PO PRN (22:00)
[2024-12-30] MEDS ORDERED: magnesium sulf-water 4G/100mL 100 ML IV PRN (22:00)
[2024-12-30] MEDS ORDERED: HYDROcodone/acetaminophen 5mg/325mg tablet PO PRN (22:00)
[2024-12-30] MEDS ORDERED: ondansetron/PF 4mg/2ml inj IV PRN (22:00)
[2024-12-30] MEDS ORDERED: potassium Cl 40MEQ/1/2NS 520ml 520 ML IV PRN (22:00)
[2024-12-30] MEDS ORDERED: PERFLUTREN PROTEIN-A MICROSPHR (Optison) 0.22 MG/ML 3ML VIAL IV ONE (22:05)
--- NOTE | 2024-12-30 22:32 | HISTORY AND PHYSICAL-Residence ---
History & Physical Providers to CC Resident Creating Document: SU MONTERO RES CC: TACHO JIN MD ~ History of Present Illness Primary Medical Doctor: MARTHA FERNANDES [facility] Reason for Admit\Complaint: RIGHT EYE PAIN FOR A WEEK History of Present Illness 69-year-old male with CAD s/p CABG on 12/04/2024 KELLEY to LAD and reverse SVG to left posterior left ventricular branch, BRENNON occlusion, hyperlipidemia, history of TIA, presented to the ER with chief complaints of ongoing right-sided pain for almost a week. Patient stated right eye pain is associated with redness, photophobia, right sided headache. He also described fogginess of the vision in the right eye but no acute vision loss. For these complaints he initially came to ER on 12/27, during the time and he was diagnosed with UTI urine cultures positive for pansensitive Klebsiella and was started on p.o. ciprofloxacin. His Plavix was held in view of hematuria As the eye pain is persistent today he came to the ER and the tonometry revealed elevated intraocular pressures and the patient was sent to Dr. Zuñiga bloom conveyor operator. The eye clinic he was diagnosed with right-sided glaucoma with pressures of 38 in the right eye and 8 in the left eye. Patient stated his symptoms got relieved after taking eyedrops. However as the bloom conveyor operator had suspicion of giant cell arteritis patient is sent back to ER Patient denies fever, recent myalgias/arthralgias. However he endorses weight loss since CABG three weeks ago. Is also having decreased appetite, difficulty in swallowing pills, he sensation of pills stucking in his throat, nausea, and overall generalized weakness in CABG three weeks ago PCP at [facility] in [place], vehicle maintenance technician is Dr. Redding Allergies: Coded Allergies: NSAIDS (Non-Steroidal Anti-Inflamma (Verified Allergy, Unknown, 12/27/24) aspirin (Verified Adverse Reaction, Severe, 12/27/24) Vomiting Home Medications Home Medications Active Cipro (Ciprofloxacin HCl) 250 Mg Tablet 1 Tab PO DAILY 5 Days Acetaminophen-Cod #3 Tablet (Acetaminophen/Codeine Phosphate) 300 Mg-30 Mg Tablet 1 Tab PO Q6H PRN Pantoprazole Sodium 40 Mg Tablet. 40 Mg PO DAILY Lopressor tablet* (Metoprolol Tartrate) 25 Mg Tablet 25 Mg PO Q12H Hold for SBP below 100mm Hg Hold for Heart Rate below 60. Lipitor (Atorvastatin Calcium) 10 Mg Tablet 10 Mg PO HS 30 Days Reported Plavix (Clopidogrel Bisulfate) 75 Mg Tablet 1 Tab PO DAILY Cyclobenzaprine HCl 5 Mg Tablet 1 Tab PO DAILY PRN Nitroglycerin 0.4 Mg Tab.subl 0.4 Mg SL Q5MIN PRN Past Medical History Past Medical History CAD s/p CABG on 12/04/2024, Hyperlipidemia Sick sinus syndrome S/P permanent pacemaker Previous history of TIA Recent UTI with Klebsiella tejada sensitive Past Surgical History Surgical History Comment CABG on 12/04/2024 Pacemaker surgery two years ago Bilateral knee replacement Family History Family History: Coronary artery disease FH: coronary artery disease Past Social History Social History Comment Patient has been smoking one packet of cigarette for 50 years, 50 pack years per since the surgery on 12/04/2024 he quitted smoking Denies alcohol abuse Denies illicit drug use Independent for ADLs Lives in his home with his Alcohol Use: Rarely Drug Use: None Lives with: Spouse Lives In: Home ROS ROS ROS Constitutional: Positive for decreased appetite, weight loss, fatigue, HEENT: Positive for blurring of the vision, No sore throat, epistaxis, tinnitus Cardiovascular: No chest pain/discomfort, palpitations, syncope. No pedal edema Respiratory: Positive for sob, no cough,, hemoptysis Gastrointestinal: No abdominal pain, nausea, vomiting. No diarrhea, constipation, melena. Genitourinary: No frquency, urgency, incontinence, nocturia. No dysuria, hematuria- relieved Musculoskeletal: Positive for arthralgia, myalgia Endocrine: fatigue, polydipsia, polyuria. No heat or cold intolerance Neurologic: Positive headache, no vertigo. No weakness, numbness or tingling of extremities Psychiatric: No hallucinations/delusions, no anhedonia, no suicidal ideation\ Hematologic: No bleeding or bruises Reviewed in full. All negative except for pertinent positives in HPI Exam Vitals: Vital Signs Date Time Temp Pulse Resp B/P (MAP) Pulse Ox O2 Delivery O2 Flow Rate FiO2 12/30/24 20:14 12/30/24 19:40 98.6 75 14 96 0 General: General: Elderly male, AAO x4, not in apparent distress, thin and malnourished Head: Normocephalic with an atraumatic Eyes: Pupils- 3mm, reacting to light, conjunctiva- anicteric Right eye- redness present, mild globe tenderness, no watering, no tenderness in the bilateral temporal region or temporal artery site Nose and throat: No polyps, septum- normal, no mucosal ulcers Neck: Supple, no lymphadenopathy, no carotid bruit Respiratory: No use of accessory muscles of respiration, bilateral decreased breath sounds Chest- sternal wound edges are approximated, wound is healing well, no tenderness no surrounding redness or discharge Cardiac: S1-S2 heard, rythm regular, no gallop/murmur Abdomen: non distended, no tenderness, no organomegaly, bowel sounds- heard Extremities: no clubbing, no pedal edema, no deformities, peripheral pulses- 2+ Skin: warm and dry, no rash, no purpura Neuro: Able to form wrinkles over the forehead equally, no lagophthalmos, extraocular movements are full, no facial numbness, no deviation of angle of mouth, no facial asymmetry, facial strength is normal, tongue stent is normal, no fasciculations or fibrillations of the tongue. Able to shrug both shoulders Power 5 x 5 both proximally and distally in the upper extremities Power 5 x 5 both proximally distally in the lower extremities Vision is normal in both eyes Color vision normal in both eyes Diagnostic Data Last Recorded Lab Results: 12/30/24201212/30/242012 Advance Care Planning Advanced Care plannin - 30 Minutes (Code status is discussed with him and he opted for full code with his as alternate POA) Additional Plan 69-year-old male with CAD s/p CABG on 12/04/2024 KELLEY to LAD and reverse SVG to left posterior left ventricular branch, BRENNON occlusion, hyperlipidemia, history of TIA, presented to the ER with chief complaints of ongoing right-sided pain for almost a week. Right eye glaucoma -presented with right eye pain with telemetry revealing pressures of 38 in the right eye -currently symptoms relieved with eyedrops -patient was seen by Dr. Zuñiga Ophthalmology and was recommended some eyedrops. We do not know whether it is open-angle or closed angle glaucoma -consult Dr. Le Ophthalmology in the a.m. -started on timolol 0.5% eyedrops one drop in the right eye daily Possible GCA -presented with right eye pain and right hemicranial headaches -however at present he is not having any temporal artery tenderness -ESR is mildly elevated to 29 and CRP is 2.26 -tele neurology recommended if the patient's symptoms are not resolving then empirical steroids and harness racing handicapper/ophthalmology consult. At present patient's symptoms got better after receiving eyedrops, await ophtho consultation in the a.m. Possible stroke -as per patient and his family he had right-sided facial droop and right numbness. However on object to examination there is no facial asymmetry, and no facial numbness -tele neurology consulted and they recommended CTA head/neck and MRI brain with and without contrast, and to reconsult if there is any abnormality of CTA head/neck or MRI -2D Doppler done in November 2024 showed less than 50% stenosis of bilateral carotid artery systems -continue aspirin and Plavix -continue neuro checks -NPO until passes bedside swallow test -PT/OT -telemetry monitoring to look for any arrhythmias CAD S/p CABG on 12/04/2024 KELLEY to LAD, reverse SVG left posterior left ventricular branch Left atrial appendage occlusion -continue Plavix 75 mg once daily and atorvastatin 40 mg once daily Hyperlipidemia -LDL 138 -continue atorvastatin 40 mg once daily History of TIA -continue Plavix and atorvastatin Sick sinus syndrome s/p ppm UTI Acute cystitis -currently denies any symptoms of UTI, he was diagnosed with UTI on 12/27 -received three doses of p.o. ciprofloxacin 250mg once daily for pansensitive Klebsiella -WBC came down to 7.8 from 16 -started on IV ceftriaxone 1 g once daily, continue for two more days -follow up on urine cultures SWAPNIL -prerenal secondary to renal tubular stasis -patient appears dehydrated, we will give 500 cc of normal saline bolus -current creatinine 1.16, baseline creatinine 0.7-0.8 -monitor BMP input output chart Dysphagia for evaluation -patient is also having difficulty in swallowing with a sensation of food sticking in his throat -follow up on swallow evaluation and if needed consult GI for EGD COPD/emphysema -currently not in exacerbation -DuoNeb nebulization q.4h/p.r.n. 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 MRI brain with and without contrast can be obtained for further characterization. -follow up on MRI brain with and without contrast Infrarenal abdominal aortic aneurysm -CT abdomen done in 2022 showed 3.6 cm infrarenal AAA -he needs to get repeat CT abdomen on outpatient basis for monitoring of aneurysm size Malnutrition -ensure enlive and nutrition consult Code Status: Full code Line/tube: PIV DVT prophylaxis: Lovenox Nutrition: Heart healthy PT: Yes Prognosis: Guarded Disposition: Continue care in ortho floor Su Montero MD IM PGY-3 resident Patient evaluated using HIPPA compliant AV device Agree with plan as discussed with the resident Tacho Jin MD Date of Service: Dec 30, 2024 Billing Provider: TACHO JIN MD, HARIVARSHA, [facility] Dec 30, 2024 22:31 TACHO JIN MD Dec 31, 2024 01:54
[2024-12-30 22:44] LABS: PRO BRAIN NATRIURETIC PEPTIDE 186 PG/ML (0-125)
[2024-12-30] MEDS: normal saline 500ml IV soln 500 ML IV ONE (22:46)
[2024-12-30] MEDS ORDERED: ipratropium/albuterol 3ml nebule NEB PRN (22:50)
[2024-12-30] MEDS ORDERED: DEXTROSE 15 GM of carb/4 tabs (each vial/BOTTLE has 4 tablets) PO PRN ×2 (23:10)
[2024-12-30] MEDS ORDERED: glucagon, human recombinant 1mg kit SUBCUT PRN (23:10)
[2024-12-30] MEDS ORDERED: dextrose 50%-water 50ml dispensing syringe IV PRN ×2 (23:10)
[2024-12-30 23:55] VITALS: BP 150/71; PULSE 73; RESP 16; TEMP 97.8; O2SAT 100
[2024-12-30 23:58] VITALS: PULSE 76; RESP 16; O2SAT 97
[2024-12-31] VITALS (10 sets, daily range): BP systolic 108–147; BP diastolic 69–85; PULSE 63–83; RESP 16–17; TEMP 96.6–97.8; O2SAT 98–100
[2024-12-31 05:32] LABS: MEAN PLATELET VOLUME 7.4 FL (7.4-10.4); RED CELL DISTRIBUTION WIDTH 13.8 % (11.5-14.5)
[2024-12-31 06:00] LABS: CREATININE 0.90 MG/DL (0.60-1.10); PHOSPHORUS 3.7 MG/DL (2.3-4.5); TOTAL CARBON DIOXIDE 26.1 MMOL/L (24-32); eCRCL 70 ML/MIN; eGFR 83 ML/MIN
[2024-12-31] MEDS: INSULIN LISPRO 100 UNIT/ML INSULN.PEN MULTI-DOSE SQ SCH (07:00)
[2024-12-31] MEDS: CefTRIAXone/D5W-Rocephin 1gm 50 ML IV SCH (07:32)
[2024-12-31] MEDS: docusate sod 100mg capsule PO SCH (07:32)
[2024-12-31] MEDS: enoxaparin 40mg/0.4ml syringe SUBCUT SCH (07:32)
[2024-12-31] MEDS: pantoprazole 40mg Tablet.DR PO SCH (07:34)
[2024-12-31] MEDS: HYDROcodone/acetaminophen 10/325mg tab PO PRN (07:34)
--- NOTE | 2024-12-31 07:43 | ELECTROCARDIOGRAPH REPORT ---
[facility] Test Date: 2024-12-30 Test Time: 22:47:20 Pat Name: LANDON NICOLE Department: EMERGENCY ROOM Room: ORTHO [facility] Gender: M Software Integrator: : 1955 Requested By: GAMAL MONTERO Order Number: [id number] Reading MD: Measurements Intervals Crawford Rate: 73 P: 79 GA: 177 QRS: 158 QRSD: 110 T: 50 QT: 394 QTc: 435 Interpretive Statements Sinus rhythm Probable right ventricular hypertrophy Baseline wander in lead(s) I Please click the below link to view image of tracing.
[2024-12-31] MEDS: K and/or MAG REPLACEMENT MC SCH (08:00)
[2024-12-31] MEDS ORDERED: timolol 0.5% ophthalmic solution 5ml bottle RIGHTEYE SCH (08:00)
--- NOTE | 2024-12-31 09:35 | RADIOLOGY REPORT ---
CT CTA NECK/HEAD INDICATION: RIGHT FACIAL DROOPINESS, RIGHT EYE VISION ABN EXAM DATE: 12/31/2024 08:30 AM COMPARISON: CT CT HEAD on DOS: 12/27/24, VASC VL CAROTID on DOS: 12/02/24 RADIATION DOSE: CTDIvol: 12 mGy, DLP: 452 mGy*cm PROCEDURE: CT angiogram images were obtained of the head and neck. Coronal and sagittal reformatted i mages were created as well as 3D and/or MIP reconstructions. All CT scans at this medical facility are performed using dose modulation techniques as appropriate t o a performed exam including the following: Automated exposure control was utilized; adjustment of th e MA and/or KV according to patient size; and use of iterative reconstruction technique. FINDINGS: Head: Please see prior CT head for more details. 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 On the CT angiographic images, the internal carotid arteries are normal in caliber from the skull bas e to their bifurcations. The anterior and middle cerebral arteries and their branches appear normal. The anterior communicating artery appears normal. The bilateral posterior communicating arteries are normal. The vertebral arteries are codominant. The vertebral, basilar, superior cerebellar, and poste rior cerebral arteries are normal in caliber. No aneurysm, arteriovenous malformation, or stenosis is visible. Neck: The common carotid, internal carotid, external carotid, and vertebral arteries are normal in caliber. The vertebral arteries are codominant. The visualized intracranial arteries are normal. There is no evidence of contrast extravasation, filling defects, stenosis, or dissection. The pharynx and airway are normal. The thyroid, submandibular, and parotid glands appear normal. No l ymphadenopathy is seen. The visualized intracranial structures are unremarkable. IMPRESSION: No acute abnormal CT angiographic findings of the head and neck without large vessel occlusion or dis section.
--- NOTE | 2024-12-31 13:33 | RADIOLOGY REPORT ---
PROCEDURE: MR MRI HEAD Indication: RIGHT EYE VISION ABN, AND RIGHT FACIAL DROOPINESS, CT - POSSIBLE MENINGIOMA COMPARISON: CT CT HEAD on DOS: 12/27/24 TECHNIQUE: Multiplanar multisequence images of the brain are obtained. FINDINGS: There is no abnormal diffusion restriction. There is mild global cerebral volume There is no intracra nial hemorrhage. No extra-axial fluid collection, mass effect or midline shift. The ventricles are mi dline and normal in size. The cisterns are patent. Normal intracranial flow voids are preserved. m le ft orbital roof 7 mm T2 dark lesion corresponding to the calcified lesion seen on prior scan. No enh ancement present. Mild global cerebral volume loss. Right mastoid effusion. No abnormal intracranial enhancement. No CP angle/ IAC mass seen . IMPRESSION: No acute cerebrovascular ischemia. No CP angle / IAC mass. Mild global cerebral volume loss. 7 mm T2 dark lesion corresponding to the calcification seen on prior CT orbit/head. No enhancement w ithin this lesion which could represent exostosis, calcified meningioma, osteoma. Right mastoid effusion.
[2024-12-31] MEDS ORDERED: clopidogrel 300mg tablet PO ONE (14:40)
[2024-12-31] MEDS ORDERED: BRIM10DR2 RIGHTEYE (14:51)
[2024-12-31] MEDS ORDERED: GADOTERATE MEGLUMINE 7.5 MMOL/15 ML VIAL IV ONE (17:03)
[2024-12-31] MEDS: COMBIGAN EYE DROPS OP SCH (17:57)
[2024-12-31] MEDS: lactose-reduced food (Ensure Enlive) - 237ml bottle PO SCH (18:00)
--- NOTE | 2024-12-31 18:08 | CARDIOLOGY REPORT ---
APPROVED REPORT EXAM: Limited 2D, Doppler, and color-flow Echocardiogram. Patient Location: 4024B Blood Pressure: 147/82 mmHg Heart Rate: 60 bpm Rhythm: Sinus Indications Coronary Artery Disease S/P CABG x 2 (12/04/24, [facility]) HX of TIA Pacemaker (2022) MARKET RESEARCH ANALYST: Brett Redding MD [facility] ECHO/ARIELLE: 12/04/24, [facility], EF: 65 2D Dimensions IVSd 1.0 (0.7-1.1cm) LVDd 3.8 cm PWd 0.8 (0.7-1.1cm) IVSs 1.4 (0.8-1.2cm) LVDs 2.3 (2.5-4.0cm) PWs 1.2 (0.8-1.2cm) LVEF(%) 71.3 (>50%) IVC 15.31 mm FS (%) 39.9 % SV 43.6 ml CO 2.6 L/min M-Mode Dimensions Aortic Cusp Exc 1.73 (1.5-2.0cm) Aortic Valve AoV Peak Marcus. 122.6 cm/s AO Peak GR. 6.0 mmHg Tricuspid Valve TR P. Velocity 140 cm/s RAP ESTIMATE 10 mmHg TR Peak Gr. 8 mmHg RVSP 18 mmHg LEFT VENTRICLE Normal LV size and wall thickness. Overall systolic function is normal. LVEF is 65-70%. RIGHT VENTRICLE The right ventricle appears normal in size and function. ATRIA The left atrium size appears normal. Pacemaker lead is present in the right heart. AORTIC VALVE Trileaflet AV appears mildly sclerotic without stenosis. Trace insufficiency. AV not fully evaluated due to limited focused exam. MITRAL VALVE Mild mitral annular calcification without stenosis. Trace regurgiation. MV not fully evaluated due to limited focused exam. TRICUSPID VALVE The tricuspid valve is normal in structure with trace regurgitation. PULMONIC VALVE Pulmonic valve is grossly normal in structure without insufficiency. GREAT VESSELS The aortic root is normal in size. IVC is normal in size. PERICARDIUM Normal pericardium. No effusion. Other Information Study Quality: Adequate Conclusion Normal LV size and wall thickness. Overall systolic function is normal. LVEF is 65-70%. The right ventricle appears normal in size and function. The left atrium size appears normal. Pacemaker lead is present in the right heart. Trileaflet AV appears mildly sclerotic without stenosis. Trace insufficiency. AV not fully evaluate d due to limited focused exam. Mild mitral annular calcification without stenosis. Trace regurgiation. MV not fully evaluated due to limited focused exam. The tricuspid valve is normal in structure with trace regurgitation. Pulmonic valve is grossly normal in structure without insufficiency. Normal pericardium. No effusion.
--- NOTE | 2024-12-31 20:26 | PROGRESS NOTE ---
Daily Progress Note Providers to CC ~ Antibiotic Timeout Antibiotic Ordered?: Yes Subjective The patient is right-sided temporal headache is improve his sed rates was only 29 and CRP was only 2.26 I discussed these findings with Dr. Zuñiga o phthalmologist who agreed that giant cell arteritis is highly unlikely- the patient is MRI of the head was negative and CTA of the head and neck was unremarkable for any significant large vessel stenosis Objective Vital Signs Date Time Temp Pulse Resp B/P (MAP) Pulse Ox O2 Delivery O2 Flow Rate FiO2 12/31/24 19:53 73 16 98 Room Air* 0 21 12/31/24 16:00 97.2 132/80 (97) Result Diagram: 12/31/24 0441 12/31/24 0441 Gen. No acute distress alert and oriented 4 Lungs clear to ascultation bilaterally, no wheezes rales or rhonchi appreciated Heart normal sinus rhythm no murmurs rubs or clicks noted Abdomen soft nontender bowel sounds are normoactive Lower extremities no clubbing cyanosis, nor edema appreciated bilaterally Problem\Assessment\Plan # right eye glaucoma Continue home eyedrops # possible giant cell arteritis I discussed the case with Dr. Zuñiga catering administrative assistant due to the sed rate only at 29 and CRP at 2.26 it is highly unlikely that the patient has a giant cell arteritis The patient's headache is improving as well # Possible stroke -as per patient and his family he had right-sided facial droop and right numbness. However on object to examination there is no facial asymmetry, and no facial numbness -tele neurology consulted and they recommended CTA head/neck and MRI brain with and without contrast, and to reconsult if there is any abnormality of CTA head/neck or MRI -2D Doppler done in November 2024 showed less than 50% stenosis of bilateral carotid artery systems MRI was negative for acute CVA CTA of the head and neck was negative for any large vessel stenosis Continue Plavix Awaiting physical therapy evaluation # CAD Status post CABG on 12/04/2024 the KELLEY to LAD reverse SVG left posterior ventricular branch Left atrial appendage occlusion Continue Plavix # hyperlipidemia Continue atorvastatin #UTI Acute cystitis -currently denies any symptoms of UTI, he was diagnosed with UTI on 12/27 -received three doses of p.o. ciprofloxacin 250mg once daily for pansensitive Klebsiella -WBC came down to 7.8 from 16 -started on IV ceftriaxone 1 g once daily, continue for two more days -urine culture thus far is negative #SWAPNIL -prerenal possibly secondary to secondary to renal tubular stasis -patient appears dehydrated, we will give 500 cc of normal saline bolus -current creatinine 1.16, baseline creatinine 0.7-0.8 -monitor BMP input output chart Dysphagia for evaluation -patient is also having difficulty in swallowing with a sensation of food sticking in his throat -follow up on swallow evaluation and if needed consult GI for EGD #COPD/emphysema -currently not in exacerbation -DuoNeb nebulization q.4h/p.r.n. 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 MRI brain with and without contrast can be obtained for further characterization. -MRI brain with and without contrast is negative for osteoma or meningioma Infrarenal abdominal aortic aneurysm -CT abdomen done in 2022 showed 3.6 cm infrarenal AAA -he needs to get repeat CT abdomen on outpatient basis for monitoring of aneurysm size #Malnutrition -ensure enlive and nutrition consult Code Status: Full code Line/tube: PIV Date of Service: Dec 31, 2024 Billing Provider: ZBIGNIEW LORENZ DO Common Visit Codes: [id number] INP/OBS CARE(HIGH) ZBIGNIEW LORENZ DO Dec 31, 2024 20:26
[2025-01-01 02:00] VITALS: BP 134/81; PULSE 74; RESP 18; TEMP 97.9; O2SAT 97
[2025-01-01 05:28] LABS: CREATININE 0.93 MG/DL (0.60-1.10); PHOSPHORUS 4.5 MG/DL (2.3-4.5); TOTAL CARBON DIOXIDE 30.7 MMOL/L (24-32); eCRCL 67 ML/MIN; eGFR 80 ML/MIN
[2025-01-01 05:29] LABS: MEAN PLATELET VOLUME 7.5 FL (7.4-10.4); RED CELL DISTRIBUTION WIDTH 13.9 % (11.5-14.5)
[2025-01-01 06:00] VITALS: BP 118/73; PULSE 75; RESP 18; TEMP 97.9; O2SAT 95
[2025-01-01 07:06] VITALS: BP 131/75; PULSE 78
[2025-01-01 10:00] VITALS: BP 119/66; PULSE 75; RESP 14; TEMP 97.4; O2SAT 100
[2025-01-01 13:48] LABS: CHOL/HDL RATIO 4.1 (0.00-4.99); LDL CHOLESTEROL 79 MG/DL (50-100)
--- NOTE | 2025-01-01 20:55 | DISCHARGE SUMMARY ---
Discharge Summary Providers to CC ~ Discharge Summary Admission Diagnosis: RIGHT EYE PAIN/STROKE WORKUP Hospital Course DATE OF ADMISSION: 12/30/2024 DATE OF DISCHARGE: 01/01/2025 Discharge Diagnosis\\Comment: Possible stroke- ruled out Possible giant cell arteritis-ruled out UTI- acute cystitis Hyperlipidemia/CAD Acute kidney injury was ruled out Chronic COPD Operations\\Procedures: None Consultants: Dr. Naresh Degroot tele neurologist Complications: None Condition on DC: Stable for transfer Continued Medications: Acetaminophen with Codeine (Acetaminophen-Cod #3 Tablet) 300 Mg-30 Mg Tablet 1 TAB PO Q6H PRN for pain, #24 TAB Atorvastatin Calcium (Lipitor) 10 Mg Tablet 10 MG PO HS for 30 Days, #30 TAB 2 Refills Brimonidine Tartrate/Timolol (Combigan Eye Drops) 0.2 %-0.5 % Drops 1 DROP RIGHTEYE Q12H, #10 ML 0 Refills Clopidogrel Bisulfate (Plavix) 75 Mg Tablet 1 TAB PO DAILY, TAB 0 Refills Cyclobenzaprine HCl (Cyclobenzaprine HCl) 5 Mg Tablet 1 TAB PO DAILY PRN for pain Metoprolol Tartrate* (Lopressor tablet*) 25 Mg Tablet 25 MG PO Q12H, #60 TAB 2 Refills Hold for SBP below 100mm Hg Hold for Heart Rate below 60. Nitroglycerin (Nitroglycerin) 0.4 Mg Tab.subl 0.4 MG SL Q5MIN PRN for Chest pain Q5min PRNx3-call MD Pantoprazole Sodium (Pantoprazole Sodium) 40 Mg Tablet.dr 40 MG PO DAILY, #30 TAB.SR Discontinued Medications: Ciprofloxacin HCl (Cipro) 250 Mg Tablet 1 TAB PO DAILY for 5 Days, #5 TAB 0 Refills Discharge Summary: The patient was admitted by resident physician GAMAL Diaz MD, under the supervision of DYLAN Stauffer MD with the following HPI:"69-year-old male with CAD s/p CABG on 12/04/2024 KELLEY to LAD and reverse SVG to left posterior left ventricular branch, BRENNON occlusion, hyperlipidemia, history of TIA, pr esented to the ER with chief complaints of ongoing right-sided pain for almost a week. Patient stated right eye pain is associated with redness, photophobia, right sided headache. He also described fogginess of the vision in the right eye but no acute vision loss. For these complaints he initially came to ER on 12/27, during the time and he was diagnosed with UTI urine cultures positive for pansensitive Klebsiella and was started on p.o. ciprofloxacin. His Plavix was held in view of hematuria As the eye pain is persistent today he came to the ER and the tonometry revealed elevated intraocular pressures and the patient was sent to Dr. Zuñiga blueprint tracer. The eye clinic he was diagnosed with right-sided glaucoma with pressures of 38 in the right eye and 8 in the left eye. Patient stated his symptoms got relieved after taking eyedrops. However as the blueprint tracer had suspicion of giant cell arteritis patient is sent back to ER Patient denies fever, recent myalgias/arthralgias. However he endorses weight loss since CABG three weeks ago. Is also having decreased appetite, difficulty in swallowing pills, he sensation of pills stucking in his throat, nausea, and overall generalized weakness in CABG three weeks ago PCP at [facility] in [place], desk sergeant is Dr. Redding" The patient is evaluated by Dr. Naresh Degroot tele neurologist recommended stroke workup MRI was negative for acute CVA CTA of the head and neck was negative for any large vessel stenosis Echocardiogram demonstrated an LVEF of 65-70% - thus the patient is stroke workup was negative I discussed the case with Dr. Zuñiga blueprint tracer due to the sed rate only at 29 and CRP at 2.26 it is highly unlikely that the patient has a giant cell arteritis The patient's headache is improving as well and the patient informed me that his headache resolves with the the eyedrops the blueprint tracer had prescribed. Dr. Zuñiga stated there was no contraindication in continuing Plavix in regards to the patient's glaucoma and ophthalmology findings Initially was felt that the patient has a acute kidney injury however this was ruled out. Gen. No acute distress alert and oriented 4 Lungs clear to ascultation bilaterally, no wheezes rales or rhonchi appreciated Heart normal sinus rhythm no murmurs rubs or clicks noted Abdomen soft nontender bowel sounds are normoactive Lower extremities no clubbing cyanosis, nor edema appreciated bilaterally The patient felt ready to be discharged and was medically cleared to be discharged on 01/01/2025 The patient was seen and evaluated on day of discharge. Time spent on discharge 40 minutes *Problems/Diagnosis: (1) Glaucoma Status: Acute Total Time Spent on D/C: > 30 Minutes Date of Service: Jan 01, 2025 Billing Provider: ZBIGNIEW LORENZ DO Common Visit Codes: 42846-JMP/OBS DISCH DAY >30min ZBIGNIEW LORENZ DO Jan 01, 2025 20:54
== END 2025-01-01 11:00 | disposition home or self-care (01) | DRG 125 ==
LOC: ER 17:21 → ED HOLD 22:02 → EDBEDREQ 23:09 → ORTHO 4S 23:56
PROVIDERS: ADMIT Internal Medicine; ATTEND Family Medicine
PROC: B3251ZZ Computerized Tomography (CT Scan) of Bilateral Common Carotid Arteries using Low Osmolar Contrast (ICD-10-PCS; principal; 2024-12-31)
PROC: B32G1ZZ Computerized Tomography (CT Scan) of Bilateral Vertebral Arteries using Low Osmolar Contrast (ICD-10-PCS; 2024-12-31)
PROC: B32R1ZZ Computerized Tomography (CT Scan) of Intracranial Arteries using Low Osmolar Contrast (ICD-10-PCS; 2024-12-31)
PROC: B3281ZZ Computerized Tomography (CT Scan) of Bilateral Internal Carotid Arteries using Low Osmolar Contrast (ICD-10-PCS; 2024-12-31)
DX: H40.9 Unspecified glaucoma (principal); N30.00 Acute cystitis without hematuria; E44.1 Mild protein-calorie malnutrition; E86.0 Dehydration; D32.9 Benign neoplasm of meninges, unspecified; J44.9 Chronic obstructive pulmonary disease, unspecified; I25.10 Atherosclerotic heart disease of native coronary artery without angina pectoris; E78.5 Hyperlipidemia, unspecified; R13.10 Dysphagia, unspecified; R73.03 Prediabetes; I71.43 Infrarenal abdominal aortic aneurysm, without rupture; Z86.73 Personal history of transient ischemic attack (TIA), and cerebral infarction without residual deficits; Z88.6 Allergy status to analgesic agent; Z79.01 Long term (current) use of anticoagulants; Z79.899 Other long term (current) drug therapy; Z95.1 Presence of aortocoronary bypass graft; Z68.20 Body mass index [BMI] 20.0-20.9, adult; R51.9 Headache, unspecified
CPT/HCPCS: 36415; 70496; 70498; 70553; 71045; 80048; 80053; 80061; 81001; 82140; 82948; 83735; 83880; 84100; 85025; 85651; 86140; 87081; 87088; 93005; 93308; 94760; 96360; 97116; 97161; 97530; 99283; 99285; G0378; J0696; J1650; J1815; J7030; J7040; Q9967